=== PATIENT | male | born 1940 | race Caucasian/White ===

== ENCOUNTER → 2018-05-08 | Outpatient (CLI) | payer OTHER ==
[~2018-05-08] VITALS: Ht 175.3 cm; Wt 88.5 kg
[~2018-05-08] MED LIST: ASPIRIN325 PO; COZAAR 25 MG TA25 M2 PO; LIPITOR80 MG PO; LOPRESSOR25 PO; NEURONTIN 300300 M1 PO; NIASPAN ER 101000 M1 PO; PLAVIX 75 MG TA75 MG PO
--- NOTE | ~2018-05-08 | HPC ---
[facility] [address] [place] [address] PAIN MANAGEMENT CONSULTATION Name: TIANA YIN Room #: REG CL MGarrett.#: [id number] Admission: 05/08/18 Attend Phys: Marvin Ceja DO Discharge: Date of : 40 Report #: [id number] THIS REPORT FOR: //name// CC: Esteban Pham NP DATE OF SERVICE: 05/08/2018 REFERRING PHYSICIAN: Silver Cabrera M.D. CHIEF COMPLAINT: Low back pain and bilateral lower extremity pain with paresthesias. HISTORY OF PRESENT ILLNESS: As you know, the patient is a very pleasant 78-year-old male referred to us at Pain Clinic with concern of low back pain, bilateral lower extremity pain and paresthesias. The patient has sought evaluation through [facility] and has been determined to be a surgical candidate to undergo surgery apparently in August of 2018. He was subsequently referred to our clinic to trial epidural injections under fluoroscopic guidance to determine if his symptoms may improve with such procedures. He indicates that his pain has progressively worsened. There has been no new injury or trauma. Findings of his recent imaging study showed changes at the L5-S1 level concerning for recurrent lumbar radicular symptoms. The patient indicates today the pain is constant, aching, numbness and tingling and places current pain score at 7/10, daily average at 7/10, worst pain has been is 7/10. The patient states that walking exacerbates symptoms and pain medications tend to improve pain. He has been referred to our service by his neurosurgery team to discuss the possibility of undergoing epidural injections in hopes of improving lumbar radicular symptoms secondary to spinal stenosis. PAST MEDICAL HISTORY: 1. Coronary artery disease. 2. Hypertension. 3. Hypercholesterolemia. 4. Myocardial infarction in 2019. PAST SURGICAL HISTORY: CABG in 1990. SOCIAL HISTORY: The patient is a nonsmoker. He denies IV or illicit drug use. Admits to 6 alcoholic beverages per week. He is retired, retired about 12 years ago, not receiving workmen's compensation nor is trying to obtain disability benefits. He is not in litigation in regards to pain. [facility] [address] [place] [address] PAIN MANAGEMENT CONSULTATION Name: TIANA YIN Room #: REG [facility]..#: [id number] Admission: 05/08/18 Attend Phys: Marvin Ceja DO Discharge: Date of : 40 Report #: [id number] REVIEW OF SYSTEMS: Positive for low back pain, bilateral lower extremity pain and paresthesias. All other review of systems negative per 12-point review of systems other than those listed in history of present illness. Pain impact score 70, indicating mild interference of daily activities secondary to pain. IMAGING DATA: MRI of the lumbar spine obtained on 04/01/2018 shows degenerative changes throughout the lumbar spine, grade 1 spondylolisthesis, L4-L5. Moderate disk protrusion, slight superior extension of the disk, degenerative changes at the facet joints at the L4-L5 level. There is also noted spondylolisthesis of L5 on S1. Also noted a spondylolisthesis of L4 on L5. PHYSICAL EXAMINATION: VITAL SIGNS: Blood pressure 125/79, pulse 70 and respiratory rate 14 and unlabored. The patient is 96% on room air. Height 5 feet 9 inches tall, weight 195 pounds and BMI calculated 28.8. GENERAL: Well-developed, well-nourished, well-hydrated 78-year-old male, placing current pain score at 7/10. HEENT: Normocephalic and atraumatic. Pupils equal, round and reactive to light. Extraocular muscles are intact. Sclerae nonicteric without injection. NEUROLOGICAL: Cranial nerves 2 through 12 grossly intact. Speech remains fluent. LUNGS: Appear clear. He is able to speak with full sentences. There is no respiratory distress. No use of axillary muscles. ABDOMEN: Soft, obese and nontender. EXTREMITIES: Show no clubbing, no cyanosis and no edema. MUSCULOSKELETAL: Lower extremity strength appears symmetrical 5/5, muscle bulk and tone equal and symmetrical in lower extremities when comparing left lower extremity over the right. Seated straight leg raising negative. Supine straight leg raising positive on the left. Luma's test negative. Modified Gaenslen's positive for axial low back pain. Ankle clonus negative. Babinski is negative. Gait mildly antalgic favoring left lower extremity over right. Lumbar provocation testing is met with increasing axial back pain and no radiation of symptoms in a dermatomal distribution with this maneuver. ASSESSMENT: 1. Symptomatic lumbar radiculopathy. 2. Spinal stenosis of the lumbar spine. 3. Spondylolisthesis of L4 on L5. 4. Failed lumbar spine surgery. 5. Chronic intractable pain. PLAN: 1. Based on today's physical exam and history the patient has provided, the description the patient uses in regards to pain as well as the location of symptoms and the findings of his MRI, likely source of the patient's pain is lumbar radiculopathy. The patient has been referred to our clinic by his [facility] [address] [place] [address] PAIN MANAGEMENT CONSULTATION Name: TIANA YIN Room #: REG CLBetty Toribio#: [id number] Admission: 05/08/18 Attend Phys: Marvin Ceja DO Discharge: Date of : 40 Report #: [id number] neurosurgery team to trial epidural injections under fluoroscopic guidance before surgical options would be further entertained. At present, the patient has plans to undergo surgery in August if the epidural injections are ineffective at controlling his symptoms. He and I had a long discussion today about the other options for treatment for lumbar radicular symptoms and following was discussed today. We discussed physical therapy, stretching exercise, core strengthening and concerted effort at weight loss. We discussed medication management, escalating his doses of gabapentin to a more effective dosing. We also discussed the addition of an analgesic medication other than the 5 Advil every 4 hours p.r.n. for pain. We discussed the epidural injection for which the patient referred to our clinic, spinal cord stimulator therapy and then ultimately, the surgical option, which he has already entertained. After reviewing the risks and benefits of all proposed treatment options, the patient chose to move forward with lumbar epidural injection. The patient was advised that third green party payer restrictions require that authorization be obtained before the patient can undergo an epidural injection. Authorization could take anywhere from 4-7 working days. We will begin this process immediately and contact the patient once the authorization has been obtained. The patient is amenable to undergo the epidural injection with any of the physicians here at our facility as he wishes to undergo the procedure as quickly as possible expediting the prior authorization if at all possible. We will try to accommodate the patient as much as we can to undergo the procedure as quickly as we receive the authorization. 2. We recommend the patient increase his gabapentin from 300 mg 3 times a day to 600 mg 3 times a day. He is suffering no side effects at 300 t.i.d. dosing including somnolence, decreased mental acuity, disorientation, confusion escalating the dose should improve neuropathic pain. He will watch for any of the side effects listed above. If he notes any side effects, contact our clinic. 3. We will see the patient back in followup visit once we have achieved authorization for the patient to undergo a lumbar epidural injection per the request of [facility], Dr. Silver Cabrera and his nurse practitioner, Stephanie Pham. We will contact the patient once this authorization has been obtained for him to return to undergo the procedure. 4. We wish to thank the referring team at [facility] for the opportunity to see this patient in consultation. We will keep you apprised of his response to treatment as we address lumbar radicular symptoms. Again, we wish to thank you for the opportunity to see this patient in consultation. By: [id number] Marvin Ceja DO /nt
[2018-05-08 10:29] VITALS: BP 125/79
--- NOTE | 2018-05-08 10:42 | NUR ---
Pain Clinic Assessment: 1. History of Osteoarthritis: History of Rheumatoid Arthritis: 2. Height: 5 ft. 9 in. 175.3 cm. Weight: 195.0 lb. oz. 88.452 kg. Patient's BMI: 28.8 3. Vital Signs: BP: 125/79 Pulse: 70 Resp: 14 Temp: 02 Sat: 96 ECG Mon: 4. Pain Intensity: 7 5. Fall Risk: Dizziness: N Needs help standing or walking: N Fallen in the last 3 months: N Fall risk comments: 6. Patient on Blood Thinner: None 7. History of Hypertension: Y 8. Opioid Therapy greater than 6 weeks: N Opiate Contract Signed: 9. Risk Assessment Tool Provided: LOW 10. Functional Assessment Tool: 11. Recreational Drug Use: Never Drug Type: Tobacco Use: Never Smoker Tobacco Type: Amount or Packs/day: How Many Years: Alcohol Use: Yes Frequency: Weekly Quant: 6
== END ==
LOC: PAIN 08:44
DX: M54.16 Radiculopathy, lumbar region (principal); M48.061 Spinal stenosis, lumbar region without neurogenic claudication; M43.16 Spondylolisthesis, lumbar region; G89.4 Chronic pain syndrome

== ENCOUNTER → 2018-05-10 | Outpatient (CLI) | payer OTHER ==
[~2018-05-10] VITALS: Ht 175.3 cm; Wt 93.0 kg
--- NOTE | ~2018-05-10 | HPC ---
[facility] [address] [address] PAIN MANAGEMENT CONSULTATION Name: TIANA YIN Room #: REG CL M..#: [id number] Admission: 05/10/18 Attend Phys: Luis Candelaria MD Discharge: Date of : 40 Report #: [id number] THIS REPORT FOR: //name// CC: Esteban Candelaria DATE OF SERVICE: 05/10/2018 CHIEF COMPLAINT: Pain in the low back and middle back with pain down into the left leg. HISTORY: The patient is a 78-year-old gentleman who has been experiencing bilateral lower extremity pain with paresthesia. He has been determined to be a surgical candidate. He is considering surgery in August 2018. He has been referred to the pain clinic for trial of epidural steroid injections. Feels his pain has worsened. Denies any trauma. Pain is mostly in the L5-S1 dermatomal distribution on both sides, more problematic on the left than right. Describes his pain as constant, aching, numbness and tingling. Rates it as 7-10. ALLERGIES: No known drug allergies. MEDICATIONS: Gabapentin 300 mg, losartan 25 mg, Lipitor 80 mg, metoprolol 25 mg. PAIN CLINIC ASSESSMENT/PQRS: 1. History of osteoarthritis: The patient has some arthritic changes in the lower portion of his back. He has not been treated for rheumatoid arthritis. 2. Height 5 feet 9 inches, weight 205 pounds, BMI is 30. 3. Vital signs: Blood pressure 141/90, pulse 76, respiratory rate 18, room air saturation 96%. 4. Pain intensity 11/13. 5. Fall risk: The patient has not fallen in the last 3 months. 6. Blood thinner: The patient is not on a blood thinning medication. 7. Hypertension: The patient is being treated for hypertension. 8. Opioid therapy greater than 6 weeks: The patient is not on an opioid regimen. 9. Risk assessment tool, low for opioid use. 10. Functional assessment tool . 11. Recreational drug use: The patient denies use of recreational drugs. 12. Tobacco: The patient has never smoked. 13. Alcohol: The patient drinks about 6 beverages weekly. PHYSICAL EXAMINATION: GENERAL: The patient is a well-developed, well-nourished white male. [address] [address] PAIN MANAGEMENT CONSULTATION Name: TIANA YIN [id number] Admission: 05/10/18 Attend Phys: Luis Candelaria MD Discharge: Date of : 40 Report #: [id number] his stated age. He is alert and oriented x 3. Affect is appropriate. Speech is fluent. HEENT: Normocephalic, atraumatic. Extraocular muscles intact. Sclerae nonicteric. Mucous membranes are moist. NECK: Without adenopathy or JVD. LUNGS: Clear to auscultation without rhonchi or rales. ABDOMEN: Nontender. Bowel sounds present. EXTREMITIES: Upper extremity muscle strength judged to be 5/5 for the major muscle groups in the upper extremities. MUSCULOSKELETAL: Without significant scoliosis, kyphosis or lordosis. The patient has some pain and discomfort in the low back area in the L5-S1 dermatomal distribution. Complains of pain as radiating down into both legs in the posterior area with more pain on the left greater than the right. Positive straight leg raise on the right. The patient has sensory changes in the lower extremities. IMPRESSION: 1. Symptomatic lumbar radiculopathy. 2. Spinal stenosis of lumbar spine. 3. Spondylolisthesis of L4 on L5. 4. Failed lumbar spine surgery. 5. Chronic intractable pain. RECOMMENDATIONS: We discussed treatment options with the patient. Risks and benefits of an epidural steroid injection were again reviewed. Possible complications were discussed. We discussed the possible complications, which could include but are not limited to infection, worsening of pain, no improvement in pain, worsening of discomfort, possibility of spinal headache, possibility of paralysis and the patient elects to proceed. PROCEDURE NOTE: The patient was assisted in getting on the examination table. His back was sterilely prepped with a Betadine solution. A pillow was placed on the abdomen to bolster and improve positioning. Anterior, posterior as well as lateral viewing with fluoroscopy was undertaken. The patient's back had been sterilely prepped. A 0.25% bupivacaine was infiltrated in the midline area. A left paramedian approach was undertaken. A 17-gauge Tuohy with loss of resistance technique was used to gain access to the epidural space. There was no CSF, heme or paresthesia. Aspiration was negative. Total of 80 mg Depo-Medrol, 40 mg triamcinolone and 2 mL of 0.25% bupivacaine was injected. The patient tolerated the procedure well. He remained in the pain clinic for an appropriate amount of time. He will follow up in the future as needed. The patient's pain decreased to 1-2 at the time of discharge. Total of 7 seconds fluoroscopy time was used. [address] [address] PAIN MANAGEMENT CONSULTATION Name: TIANA YIN Room #: REG CLI [facility].#: [id number] Admission: 05/10/18 Attend Phys: Luis Candelaria MD Discharge: Date of : 40 Report #: [id number] We would like to thank you for letting us participate in his care. We hope he continues to improve. By: [id number] Luis Candelaria MD /ALBER
[2018-05-10 09:04] VITALS: BP 141/90
--- NOTE | 2018-05-10 09:08 | NUR ---
Pain Clinic Assessment: 1. History of Osteoarthritis: spine History of Rheumatoid Arthritis: Not Applicable 2. Height: 5 ft. 9 in. 175.3 cm. Weight: 205.0 lb. oz. 92.988 kg. Patient's BMI: 30.3 3. Vital Signs: BP: 141/90 Pulse: 76 Resp: 18 Temp: 02 Sat: 96 ECG Mon: 4. Pain Intensity: 7 5. Fall Risk: Dizziness: N Needs help standing or walking: N Fallen in the last 3 months: N Fall risk comments: 6. Patient on Blood Thinner: None 7. History of Hypertension: Y 8. Opioid Therapy greater than 6 weeks: N Opiate Contract Signed: 9. Risk Assessment Tool Provided: LOW 10. Functional Assessment Tool: 11. Recreational Drug Use: Never Drug Type: Tobacco Use: Never Smoker Tobacco Type: Amount or Packs/day: How Many Years: Alcohol Use: Yes Frequency: Weekly Quant: 6
== END | disposition home or self-care (01) ==
LOC: PAIN 08:15
DX: M43.16 Spondylolisthesis, lumbar region (principal); M48.061 Spinal stenosis, lumbar region without neurogenic claudication; G89.29 Other chronic pain; M19.90 Unspecified osteoarthritis, unspecified site; I10 Essential (primary) hypertension; Z79.899 Other long term (current) drug therapy

== ENCOUNTER → 2018-06-13 | Outpatient (CLI) | payer OTHER ==
[~2018-06-13] VITALS: Ht 175.3 cm; Wt 90.1 kg
--- NOTE | ~2018-06-13 | HPC ---
[facility] [place] [address] [place] [address] PAIN MANAGEMENT CONSULTATION Name: TIANA YIN Room #: REG CL M.R.#: [id number] Admission: 06/13/18 Attend Phys: Peng Hi MD Discharge: Date of : 40 Report #: [id number] THIS REPORT FOR: //name// CC: Esteban Hi DATE OF SERVICE: 06/13/2018 REASON FOR VISIT: Followup visit for post-laminectomy syndrome with left L5-S1 radiculopathy. HISTORY OF PRESENT ILLNESS: The patient has seen in the [facility] in the past. He has seen my partner, Dr. Ceja and Dr. Candelaria and has recently received a left paramedian translaminar epidural injection at L5-S1. Pain relief was modest. He did receive some improvement, however. I spoke with Dr. Cabrera on the phone. The patient would like to see me since he has seen me previously in the clinic at [facility] and I agreed to work him in to our clinic today for a transforaminal epidural injection. He may also be a candidate in the future, if the pain remains persistent, look for a spinal cord stimulator or an intrathecal pump. I spent roughly 25 minutes today in evaluation and consultation and would agree that he is an ideal candidate perhaps first for a spinal cord stimulator system. Although both systems one medication and one electrical have advantages I think that for successful stimulator the patient's we value greatly the lack of need for followup. His pain mostly into the leg would categorize him as a likely responder if injections are not ultimately helpful. The role of the injection in my opinion would be to provide substantial pain relief or meaningful pain relief for an extended period of time, usually 3-4 months at the least. If he receives this, then injections can be part of the long-term management tool for selected patients. The first step, however, is to identify an injection that is helpful. Medications and recent PQRS are all reviewed from Dr. Candelaria and Dr. Ceja's records. I have also reviewed the x-rays reports and Dr. Candelaria's excellent injection of 05/08/2018. PHYSICAL EXAMINATION: GENERAL: He is a pleasant outgoing 78-year old. VITAL SIGNS: His blood pressure 137/87, heart rate 63 and BMI is 28.8. MUSCULOSKELETAL: He moves from a sitting to standing position and ambulates with mild antalgic features. There is tenderness across his low back. Limited range of motion in flexion, extension without reproduction of pain into the left leg. Sensation is intact. Deep tendon reflexes are diminished bilaterally and [address] [address] PAIN MANAGEMENT CONSULTATION Name: TIANA YIN Room #: REG [facility]..#: [id number] Admission: 06/13/18 Attend Phys: Peng Hi MD Discharge: Date of : 40 Report #: [id number] symmetrically at the ankle. Mild weakness is noted in plantar flexion. RADIOLOGICAL DATA: Suggests that there is a prior grade 1 spondylolisthesis at L4-L5 and he is status post laminectomy complete at L3 and L4. IMPRESSION: Left L5-S1 radiculopathy. PROCEDURE: Left L5-S1 transforaminal epidural injection under fluoroscopic guidance. DESCRIPTION OF PROCEDURE: He was taken to the fluoroscopic suite, placed in the prone position. Skin prepped with ChloraPrep. Skin anesthetized over the L5-S1 neural foramen. Using triplanar fluoroscopic views, I advanced needle nicely into the epidural space through the foramen and 1 mL of Omnipaque injected demonstrated spread both along the L5 nerve root and into the epidural space. It was then followed by 3 mL of 0.5% lidocaine mixed with 80 mg of triamcinolone. He tolerated the procedure well. Pain score was reduced to 0 in Recovery Room and discharged. Followup visit planned in 1-2 months. By: [id number] Peng Hi MD /nt
[2018-06-13 09:53] VITALS: BP 137/87
--- NOTE | 2018-06-13 10:04 | NUR ---
Pain Clinic Assessment: 1. History of Osteoarthritis: spine History of Rheumatoid Arthritis: Not Applicable 2. Height: 5 ft. 9 in. 175.3 cm. Weight: 198.6 lb. oz. 90.084 kg. Patient's BMI: 29.3 3. Vital Signs: BP: 137/87 Pulse: 63 Resp: 16 Temp: 02 Sat: 96 ECG Mon: 4. Pain Intensity: 5 5. Fall Risk: Dizziness: N Needs help standing or walking: N Fallen in the last 3 months: N Fall risk comments: 6. Patient on Blood Thinner: None 7. History of Hypertension: Y 8. Opioid Therapy greater than 6 weeks: N Opiate Contract Signed: 9. Risk Assessment Tool Provided: LOW 10. Functional Assessment Tool: 11. Recreational Drug Use: Never Drug Type: Tobacco Use: Never Smoker Tobacco Type: Amount or Packs/day: How Many Years: Alcohol Use: Yes Frequency: Quant:
== END | disposition home or self-care (01) ==
LOC: PAIN 09:43
DX: M54.16 Radiculopathy, lumbar region (principal); M96.1 Postlaminectomy syndrome, not elsewhere classified; M43.16 Spondylolisthesis, lumbar region; Z79.899 Other long term (current) drug therapy

== ENCOUNTER → 2019-10-14 | Outpatient (CLI) | payer OTHER | LOC: SJCVCIMAG 08:51 | PROVIDERS: ATTEND Internal Medicine Cardiovascular Disease | DX: I08.8 Other rheumatic multiple valve diseases (principal); I11.9 Hypertensive heart disease without heart failure; R94.31 Abnormal electrocardiogram [ECG] [EKG]; I25.810 Atherosclerosis of coronary artery bypass graft(s) without angina pectoris; E78.00 Pure hypercholesterolemia, unspecified; E78.5 Hyperlipidemia, unspecified; Z95.1 Presence of aortocoronary bypass graft; Z87.891 Personal history of nicotine dependence; Z82.49 Family history of ischemic heart disease and other diseases of the circulatory system ==

== ENCOUNTER → 2020-03-29 | Outpatient (CLI) | payer OTHER | LOC: SJCVCIMAG 07:04 | PROVIDERS: ATTEND Internal Medicine Cardiovascular Disease | DX: I25.10 Atherosclerotic heart disease of native coronary artery without angina pectoris (principal); R00.0 Tachycardia, unspecified; I49.3 Ventricular premature depolarization; I25.5 Ischemic cardiomyopathy; I10 Essential (primary) hypertension; I35.0 Nonrheumatic aortic (valve) stenosis; E78.00 Pure hypercholesterolemia, unspecified; Z95.1 Presence of aortocoronary bypass graft; Z79.82 Long term (current) use of aspirin; Z79.899 Other long term (current) drug therapy; Z87.891 Personal history of nicotine dependence ==

== ENCOUNTER → 2020-10-27 | Outpatient (CLI) | payer OTHER | LOC: SJCVC 12:35 | PROVIDERS: ATTEND Internal Medicine Cardiovascular Disease | DX: R94.31 Abnormal electrocardiogram [ECG] [EKG] (principal); I25.5 Ischemic cardiomyopathy; I25.10 Atherosclerotic heart disease of native coronary artery without angina pectoris; I10 Essential (primary) hypertension; I35.0 Nonrheumatic aortic (valve) stenosis; E78.00 Pure hypercholesterolemia, unspecified; I71.4 Abdominal aortic aneurysm, without rupture; Z95.1 Presence of aortocoronary bypass graft; Z95.828 Presence of other vascular implants and grafts; Z98.61 Coronary angioplasty status; Z79.82 Long term (current) use of aspirin; Z79.899 Other long term (current) drug therapy; Z87.891 Personal history of nicotine dependence; Z82.49 Family history of ischemic heart disease and other diseases of the circulatory system ==

== ENCOUNTER → 2021-04-25 | Outpatient (CLI) | payer OTHER | LOC: SJCVC 09:31 | PROVIDERS: ATTEND Internal Medicine Cardiovascular Disease | DX: R94.31 Abnormal electrocardiogram [ECG] [EKG] (principal); I10 Essential (primary) hypertension; I25.10 Atherosclerotic heart disease of native coronary artery without angina pectoris; E78.00 Pure hypercholesterolemia, unspecified; I35.0 Nonrheumatic aortic (valve) stenosis; I25.5 Ischemic cardiomyopathy; E78.5 Hyperlipidemia, unspecified; Z95.1 Presence of aortocoronary bypass graft; Z82.49 Family history of ischemic heart disease and other diseases of the circulatory system; Z79.82 Long term (current) use of aspirin; Z79.899 Other long term (current) drug therapy; Z87.891 Personal history of nicotine dependence ==